=== PATIENT | female | born 1995 | race American Indian/Alaskan Native ===

== ENCOUNTER 2017-01-07 16:00 | Emergency (ER) | payer BC ==
[2017-01-07 16:07] VITALS: BP 107/67; PULSE 78; RESP 20; TEMP 98.3; O2SAT 100
--- NOTE | 2017-01-07 16:20 | C.PDOC ---
History Of Present Illness 21 y/o F c no PMHx p/w back pain. Pain is sharp, L upper back, worse with movements and positions. She states she has had it multiple times before and it usually lasts 2 days or so. She denies particular injury, fever, cough, dyspnea , rash, urinary symptoms. She is considering seeing a specialist in the office for it as she has had it multiple times. Time Seen by Provider: 01/07/17 16:13 Chief Complaint (Nursing): Back Pain Past Medical History Vital Signs: Last Vital Signs Temp 98.3 F 01/07/17 16:05 Pulse 78 01/07/17 16:05 Resp 20 01/07/17 16:05 BP 107/67 01/07/17 16:05 Pulse Ox 100 01/07/17 16:21 Family History: States: No Known Family Hx - Social History Hx Tobacco Use: No Hx Alcohol Use: No Hx Substance Use: No - Immunization History Hx Tetanus Toxoid Vaccination: No Hx Influenza Vaccination: No Hx Pneumococcal Vaccination: No Review Of Systems Except As Marked, All Systems Reviewed And Found Negative. Constitutional: Negative for: Fever Respiratory: Negative for: Shortness of Breath Physical Exam - Physical Exam Additional Physical Exam Comments: Constitutional: No acute distress. Head: Normocephalic. Atraumatic. Eyes: PERRL. ENT: Moist mucous membranes. Neck: Supple. Cardiovascular: Regular rate. Radial pulses 2+ bilaterally. Chest: No tenderness. Respiratory: Clear to auscultation bilaterally in all lung trujillo. GI: Soft. Nontender. Nondistended. Back: Tenderness over L upper back without deformity. No midline tenderness. No bony tenderness. Musculoskeletal: No tenderness or swelling of extremities. Skin: No rashes. Neurologic: Alert, no focal deficit. ED Course And Treatment O2 Sat by Pulse Oximetry: 100 Medical Decision Making Medical Decision Making: Patient declined toradol, administered ibuprofen. Instructed to f/u with primary care for recurrent pain, appears MSK in origin. No dyspnea, fever, cough , rash, but return for these symptoms. Disposition - Disposition Disposition: HOME/ ROUTINE Disposition Time: 16:19 Condition: STABLE Prescriptions: Ibuprofen [Motrin] 600 mg PO Q6 #25 tab Famotidine [Pepcid] 1 tab PO BID #14 tab Instructions: Back Pain (ED) Forms: Work Excuse - Clinical Impression Clinical Impression: Thoracic back pain
== END 2017-01-07 16:32 | disposition home or self-care (01) ==
LOC: C.ER 16:00
DX: M54.6 Pain in thoracic spine (principal)